=== PATIENT | female | born 1970 | race Caucasian/White ===

== ENCOUNTER 2023-03-29 10:52 | Outpatient (CLI) | payer BC ==
[2023-03-29 14:21] LABS: Anion Gap 12 mmol/L (10-20); BUN (Urea Nitrogen) 8 mg/dL (9.8-20.1); Calc. Creatinine Clearance 0 mL/min (70-130); Calcium 9.2 mg/dL (7.8-10.44); Carbon Dioxide 26 mmol/L (22-29); Chloride 108 mmol/L (98-107); Estimated GFR 96; Glucose 89 mg/dL (70-105); Potassium 3.6 mmol/L (3.5-5.1); Sodium 142 mmol/L (136-145)
== END 2023-03-29 10:53 | disposition home or self-care (01) ==
LOC: CSHLAB 10:52
PROVIDERS: ATTEND Surgery
DX: Z01.818 Encounter for other preprocedural examination (principal); C18.9 Malignant neoplasm of colon, unspecified
CPT/HCPCS: 80048; 93005; 93010

== ENCOUNTER 2023-03-31 05:48 | Day surgery (SDC) | payer BC ==
[2023-03-30 09:40] VITALS: BMI 23.9
[2023-03-31] MEDS ORDERED: fentaNYL 50 mcg/mL 1 mL Vial ONE ×2 (07:14→07:46)
[2023-03-31] MEDS ORDERED: PROPOFOL 20 ML ONE (07:14)
[2023-03-31] MEDS ORDERED: Bupivacaine PF 0.5% 30 ML VIAL ONE (07:18)
[2023-03-31] MEDS ORDERED: EPINEPHrine 1 MG/ML VIAL ONE (07:18)
[2023-03-31] MEDS ORDERED: Sevoflurane 250 ML INH ANEST BOTTLE ONE (07:20)
[2023-03-31] MEDS ORDERED: CEFAZOLIN 2 GM VIAL ONE (07:30)
[2023-03-31] MEDS ORDERED: Dexamethasone 4 mg/ml Vial ONE (07:49)
[2023-03-31] MEDS ORDERED: Ondansetron PF 4 MG/2 ML Vial ONE (07:49)
[2023-03-31] MEDS ORDERED: PHENYLEPHRINE-NS 100 MCG/ML 10 ML SYRINGE ONE (07:56)
[2023-03-31] MEDS ORDERED: traMADol HCl 50 MG TAB PO PRN (08:23)
[2023-03-31] MEDS ORDERED: Acetaminophen 325 MG TAB PO PRN (08:23)
== END 2023-03-31 09:00 | disposition home or self-care (01) ==
LOC: CSHSDC 05:48
PROVIDERS: ATTEND Surgery
PROC: 0JH60WZ Insertion of Totally Implantable Vascular Access Device into Chest Subcutaneous Tissue and Fascia, Open Approach (ICD-10-PCS; principal; 2023-03-31)
DX: C18.1 Malignant neoplasm of appendix (principal); F41.9 Anxiety disorder, unspecified; J45.909 Unspecified asthma, uncomplicated; F17.210 Nicotine dependence, cigarettes, uncomplicated; Z90.49 Acquired absence of other specified parts of digestive tract; Z90.710 Acquired absence of both cervix and uterus; Z79.51 Long term (current) use of inhaled steroids; Z88.5 Allergy status to narcotic agent
CPT/HCPCS: 71045; C1788; J0171; J0665; J1100; J1642; J2405; J2704; J3010